=== PATIENT | male | born 1990 | race Caucasian/White ===

== ENCOUNTER 2022-02-25 10:39 | Emergency (ER) | payer BC, SELFPAY ==
[2022-02-25 10:40] VITALS: BP 142/101; PULSE 74; RESP 16; TEMP 36.7; O2SAT 98; BMI 25.1
--- NOTE | 2022-02-25 11:08 | EX.ED.GUMALE ---
HPI History of Present Illness Chief Complaint: Male Pain/Injury Informant: patient Pain Onset: Month(s) (1) Context: Sudden Onset Timing: Continuous Worsened by: Sitting Appearance Lesion(s): No Genital Edema: No Narrative Narrative: Patient presents with left testicular pain that began 1 month ago. Patient states he fell and landed on his left testicle. Patient states the pain is been constant over the last month. Patient states the pain is sharp. Patient states it is worse with sitting. Patient also admits to some paresthesias on the left side of his penis. Patient denies any swelling. Patient denies any dysuria or hematuria. Patient denies any fevers or chills. Patient denies any nausea or vomiting. Patient denies any radiation of the pain. Patient was seen at urgent care today and was then referred to the emergency department. Prior similar symptoms: No PFSH PFSH Medical History no medical history no medical history Home Medications NK 02/25/22 [History Last Taken Unknown] Allergy/AdvReac Type Severity Reaction Status Date / Time No Known Allergies Allergy Verified 02/25/22 10:42 Surgical History no surgical history no surgical history Social History Smoking Status: Current every day smoker tobacco type: smokeless tobacco ROS ROS ED Constitutional Constitutional ED: Denies chills or fever(s) Eyes Eyes: Denies blurry vision or change in vision ENT ENT ED: Denies rhinorrhea or sore throat Cardiovascular Cardiovascular: Denies chest pain or palpitations Respiratory/Chest Respiratory/Chest: Denies cough or dyspnea Gastrointestinal Gastrointestinal: Denies nausea or vomiting Genitourinary Genitourinary ED: Denies dysuria or hematuria Musculoskeletal Musculoskeletal: Reports back pain; Denies neck pain Integumentary Denies abscess or rash Neurologic Neurologic: Denies headache(s) or weakness Allergic/Immunologic Allergic/Immunologic ED: Denies mouth swelling or urticaria EXAM Physical Exam Const Vital Signs: 02/25/22 10:40 Temperature 98.1 F Temperature Source Temporal Pulse Rate 74 Respiratory Rate 16 Blood Pressure 142/101 H Blood Pressure Mean 114 Pulse Ox 98 Oxygen Delivery Method Room Air Positive well nourished and well developed General Appearance ED: well developed and NAD HEENT Reports moist mucous membranes Neck supple and no JVD Resp normal respiratory effort and clear to auscultation bilaterally Cardio regular rate, regular rhythm and no murmurs GI non-tender and non-distended Auscultation: normoactive bowel sounds Palpation: soft Narrative: There is some mild tenderness over the left testicle. There is no edema or ecchymosis. There is no erythema. There is no warmth. There is a vertical lie. Epididymis is posterior. There is no tenderness over the right testicle. There is no inguinal tenderness bilaterally. There is no edema or ecchymosis along the penile shaft. Neuro oriented x3, CN's II-XII intact bilaterally, moves all extremities, no focal motor deficits and no sensory deficits noted Sensorium / Orientation: alert Psych mental status grossly normal MDM MDM MDM Narrative Medical decision making narrative: Urinalysis was obtained and was within normal limits. There is no evidence of urinary tract infection or hematuria. Testicular ultrasound was obtained. There is small bilateral hydroceles. There is no evidence of epididymitis. There is good arterial flow. This was interpreted by the radiologist and reviewed by myself. Patient was advised of his findings. Patient was instructed to wear tight fitting underwear for scrotal support. Patient was instructed to follow-up with his primary care physician in 5 to 7 days. Patient was also given a referral for urology follow-up. Patient understood and was agreeable with the plan. All questions were answered. Lab Data Attestation: I reviewed the patient's lab results. Labs: Laboratory Results - last 24 hr 02/25/22 12:45 Urine Color Yellow Urine Clarity Clear Urine pH 8.0 Ur Specific [place] 1.010 Urine Protein Negative Urine Glucose (UA) Normal Urine Ketones Negative Urine Occult Blood 25 H Urine Nitrite Negative Urine Bilirubin Negative Urine Urobilinogen Normal Ur Leukocyte Esterase Negative Urine RBC 0 SEEN Urine WBC 0 SEEN Ur Squamous Epith Cells 0 SEEN Urine Bacteria 0 SEEN Urine Mucus 0 SEEN Radiography Diagnostic Testing: Clinical Impression(s) from Imaging Studies Testicular Ultrasound 02/25/22 11:13 IMPRESSION: Small bilateral hydroceles. Electronically Signed: Mason Hernandez MD at 12:57 EDT , Discharge Plan Triage Chief Complaint: Male Pain/Injury ED Provider: Saurabh Howard Dx/Rx/DC Orders Clinical Impression: Hydrocele of testis Instructions: ED Hydrocele, Type Not Specified Prescriptions: No Action NK Primary Care Provider: Quinton Jackson Referrals: Quinton Jackson MD [Primary Care Provider] - 5-7 Days Zion Sen MD [STAFF PHYSICIAN] - 5-7 Days Disposition Disposition: Home, Self Care
--- NOTE | 2022-02-25 11:13 | US_ITS ---
STUDY: SCROTUM ULTRASOUND REASON FOR EXAM: Male, 31 years old. Left testicular pain following a recent fall. TECHNIQUE: Ultrasound evaluation of the scrotum was performed with color Doppler and static reis-scale imaging. COMPARISON: None. FINDINGS: RIGHT TESTICLE INTRATESTICULAR: There is a normal size of the right testicle. The right testicle measures 4.2 cm x 3 cm x 2.5 cm. There is a homogenous echotexture. There is normal arterial and normal venous vascularity. There is no demonstrated right testicular mass or cyst. EXTRATESTICULAR: The epididymis is normal in size. The epididymis head measures 0.9 cm x 1.2 cm x 0.9 cm. There is normal vascularity of the epididymis. There is no demonstrated epididymal cystic structure. There is a small hydrocele. There is no demonstrated varicocele. There is no demonstrated extratesticular mass or cyst. LEFT TESTICLE INTRATESTICULAR: There is a normal size of the left testicle. The left testicle measures 4.4 cm x 3.1 cm x 2.5 cm. There is a homogenous echotexture. There is normal arterial and normal venous vascularity. There is no demonstrated left testicular mass or cyst. EXTRATESTICULAR: The epididymis is normal in size. The epididymis head measures 0.7 cm x 1.5 cm x 1.3 cm. There is normal vascularity of the epididymis. There is no demonstrated epididymal cystic structure. There is a small hydrocele. There is no demonstrated varicocele. There is no demonstrated extratesticular mass or cyst. US/Testicular with Arterial Flow IMPRESSION: Small bilateral hydroceles. Electronically Signed: Mason Hernandez MD at 12:57 EDT ,
[2022-02-25 12:52] LABS: Bacteria 0 SEEN /hpf (None Seen); Mucous, Urine 0 SEEN /hpf (<or=2+); Red Blood Cells-Urine 0 SEEN /hpf (0-5); Squamous Epithelial Cells - UA 0 SEEN /hpf (0-5); White Blood Cells 0 SEEN /hpf (0-5)
[2022-02-25 12:53] LABS: Color, Urine Yellow (Yellow); Glucose, Dipstick Normal (Normal); Ketone-Dipstick Negative (Negative); Leukocyte Esterase-Dipstick Negative /ul (Negative); Nitrite-Dipstick Negative (Negative); Occult Blood-Urine 25 /ul (Negative); Protein-Dipstick Negative (Negative); Urine Bilirubin Dipstick Negative (Negative); Urine Clarity Clear (Clear); Urine Urobilinogen Normal (Normal)
== END 2022-02-25 13:28 | disposition home or self-care (01) ==
PROVIDERS: Emergency Provider Emergency Medicine; PCP Family Medicine; Visit Provider Emergency Medicine
DX: N43.3 Hydrocele, unspecified (principal); N50.812 Left testicular pain; F17.220 Nicotine dependence, chewing tobacco, uncomplicated
CPT/HCPCS: 76870; 81001; 93976; 99282

== ENCOUNTER 2022-04-19 06:33 | Emergency (ER) | payer BC, SELFPAY ==
[2022-04-19 06:35] VITALS: BP 127/89; PULSE 81; RESP 16; TEMP 36.8; O2SAT 97; BMI 25.7
[2022-04-19] MEDS: 0.9% Normal Saline 1,000 ML 999 ML IV (07:15)
--- NOTE | 2022-04-19 07:29 | EDS_ITS ---
HPI History of Present Illness Chief Complaint: Other, Pain/Inj Narrative Narrative: Patient is a 31-year-old male who was seen in February after reportedly injuring his testicles. He had an ultrasound performed that time which showed small bilateral hydroceles but no acute trauma. Patient states that he has noticed that if he is up moving around mainly at work that he will have a intermittent sharp pinching pain that occurs in the testicle and down both legs towards the ankle. He also states that he can feel the same sensation in his armpits. He denies any nausea vomiting diarrhea dysuria or hematuria. He denies any repeat trauma. He states he is not sure why he is still having symptoms as his ultrasound from a few weeks ago was normal and secondary to this comes in for evaluation [facility] Home Medications NK 02/25/22 [History Last Taken Unknown] Allergy/AdvReac Type Severity Reaction Status Date / Time No Known Allergies Allergy Verified 02/25/22 10:42 Social History Smoking Status: Current every day smoker tobacco type: smokeless tobacco ROS ROS ED Constitutional Constitutional ED: Denies chills or fever(s) ENT ENT ED: Denies sore throat Cardiovascular Cardiovascular: Denies chest pain Respiratory/Chest Respiratory/Chest: Denies cough or dyspnea Gastrointestinal Gastrointestinal: Denies abdominal pain, diarrhea, nausea or vomiting Genitourinary Genitourinary ED: Denies dysuria or hematuria Musculoskeletal Musculoskeletal: Denies back pain or myalgias Integumentary Denies rash Neurologic Neurologic: Denies headache(s) Hematologic/Lymphatic Hematologic/Lymphatic: Denies easy bleeding or easy bruising EXAM Physical Exam Const Vital Signs: 04/19/22 06:35 04/19/22 06:42 Temperature 98.2 F Temperature Source Oral Pulse Rate 81 Respiratory Rate 16 Respiratory Effort Normal Non-Labored Respiratory Pattern Normal Blood Pressure 127/89 H Blood Pressure Mean 101 Pulse Ox 97 Oxygen Delivery Method Room Air Positive well nourished and well developed General Appearance ED: well developed Eyes PERRL and EOMs intact bilaterally Neck supple Neck Narrative: Negative Spurling sign bilaterally Resp normal respiratory effort and clear to auscultation bilaterally Cardio regular rate and regular rhythm Rate: other Other Details: Radial pulses are +2-4 bilaterally are equal and symmetric GI normal to inspection, nondistended, normoactive bowel sounds, non-tender and non-distended GI Narrative: No voluntary guarding or rigidity no pulsatile mass. Auscultation: normoactive bowel sounds Palpation: soft Narrative: Normal circumcised male without blood or discharge from the urethral meatus. No testicular swelling or masses noted. No abnormal lie palpated. No obvious direct or indirect hernia. No overlying soft tissue changes to suggest Harpreet's gangrene Back/Spine Back/Spine Narrative: No saddle anesthesia. Negative straight leg raise. No clonus or Babinski. Patellar reflexes are plus 2 out of 4 bilaterally Extremity normal to inspection Extremity Narrative: Bilateral upper extremities are neurovascularly intact with intact AIN/PIN. No soft tissue changes noted in either axilla to suggest trauma or infection Neuro oriented x3 and CN's II-XII intact bilaterally Sensorium / Orientation: alert Psych mental status grossly normal Skin no rashes or lesions noted MDM MDM MDM Narrative Medical decision making narrative: Patient presented to the ER with stable vitals. He reported a pinching/painful sensation not only around the genitals but down both legs towards the ankle and even in his axilla. This does not correlate with any type of testicular trauma and patient also reports there is been no new injury. On exam there is no blood swelling masses or signs of infection. He also has no signs of neuro claudication for his low back such as foot drop or asymmetry. Therefore there is no need for a CT scan of the lumbar spine to check for possible neurologic impingement. At this time basic blood work will be obtained to check for electrolyte disturbance as a cause of his abnormal sensation. However if it does not show any clinical significant findings then patient can be discharged home and follow-up on an outpatient basis Patient will be signed out to Dr Guevara pending completion of his laboratory studies Lab Data Attestation: I reviewed the patient's lab results. Labs: Laboratory Results - last 24 hr 04/19/22 04/19/22 07:15 07:15 WBC 12.2 H RBC 5.20 Hgb 16.0 Hct 45.8 MCV 88.1 MCH 30.8 MCHC 34.9 RDW Std Deviation 38.0 RDW Coeff of Larry 11.9 Plt Count 330 MPV 8.9 Immature Gran % (Auto) 0.200 Neut % (Auto) 70.3 H Lymph % (Auto) 20.6 [place] % (Auto) 7.2 Eos % (Auto) 1.2 Baso % (Auto) 0.5 Absolute Neuts (auto) 8.6 H Absolute Lymphs (auto) 2.51 Nucleated RBC % 0 Sodium 138 Potassium 3.4 L Chloride 102 Carbon Dioxide 23.0 Anion Gap 13 BUN 22 H Creatinine 0.93 Estim Creat Clear Calc 122.58 Est GFR (MDRD) Af Amer 121 Est GFR (MDRD) Non-Af 100 BUN/Creatinine Ratio 23.6 H Glucose 91 Calcium 9.1 Magnesium 2.1 Discharge Plan Triage Chief Complaint: Other, Pain/Inj ED Provider: Mathieu Zhang Dx/Rx/DC Orders Clinical Impression: Musculoskeletal pain, Nerve pain Prescriptions: No Action NK Primary Care Provider: Care Physician,No Primary Referrals: Quinton Jackson MD [Non-Staff] -
[2022-04-19 07:34] LABS: Absolute Lymphocyte Count 2.51 X10^3/uL (0.83-4.51); Absolute Neutrophil Count 8.6 X10^3/uL (2.0-7.7); Anion Gap 13 (5-15); BUN 22 mg/dL (7-18); BUN/Creat Ratio 23.6 RATIO (10-20); Basophil# 0.06 X10^3/uL; Basophil% 0.5 % (0-1); Calcium,Total 9.1 mg/dL (8.5-10.1); Chloride 102 mmol/L (98-107); Creatinine, Serum 0.93 mg/dL (0.70-1.30); EST Glomerular Filtration Rate 100 mL/min (>60); Eosinophil# 0.15 X10^3/uL; Eosinophils% 1.2 % (0-5); Est Glom Filt Rate - Afr Amer 121 mL/min (>60); Estimated Creatinine Clearance 122.58 ml/min; Glucose 91 mg/dL (74-106); Hematocrit 45.8 % (40-54); Lymphocyte # 2.51 X10^3/ul (0.83-4.51); Lymphocyte % 20.6 % (19-41); Magnesium 2.1 mg/dL (1.6-2.6); Mean Corp Hgb Conc 34.9 g/dL (32-36); Mean Corpuscular Hgb 30.8 pg (27.0-32.0); Mean Corpuscular Volume 88.1 fL (80-94); Mean Platelet Vol. 8.9 fl (6.2-12.0); Monocyte# 0.88 X10^3/uL; Monocyte% 7.2 % (0-10); NRBC Flagged by Analyzer 0 % (0-5); Neutrophil # 8.58 X10^3/uL (2.7-7.7); Neutrophil % 70.3 % (47-70); Platelet Count 330 K/mm3 (150-450); Potassium 3.4 mmol/L (3.5-5.1); RBC Distribution Width CV 11.9 % (11.6-14.6); Sodium Level 138 mmol/L (136-145); White Blood Count 12.2 K/mm3 (4.4-11.0)
[2022-04-19 08:46] LABS: Bacteria 0 SEEN /hpf (None Seen); Mucous, Urine 0 SEEN /hpf (<or=2+); Red Blood Cells-Urine 0 SEEN /hpf (0-5); Squamous Epithelial Cells - UA 0 SEEN /hpf (0-5); White Blood Cells 0 SEEN /hpf (0-5)
[2022-04-19 08:47] LABS: Color, Urine Yellow (Yellow); Glucose, Dipstick Normal (Normal); Leukocyte Esterase-Dipstick Negative /ul (Negative); Nitrite-Dipstick Negative (Negative); Occult Blood-Urine 25 /ul (Negative); Protein-Dipstick 15 mg/dl (Negative); Specific Gravity, Urine 1.025 (1.002-1.030); Urine Bilirubin Dipstick Negative (Negative); Urine Clarity Clear (Clear); Urine Urobilinogen Normal (Normal)
[2022-04-19 08:50] LABS: Ketone-Dipstick 150 mg/dl (Negative)
[2022-04-19 09:50] VITALS: BP 123/62; PULSE 63; RESP 18; O2SAT 97
== END 2022-04-19 09:51 | disposition home or self-care (01) ==
PROVIDERS: Emergency Provider Emergency Medicine; Visit Provider Emergency Medicine
DX: M79.10 Myalgia, unspecified site (principal); F17.220 Nicotine dependence, chewing tobacco, uncomplicated
CPT/HCPCS: 80048; 81001; 83735; 85025; 96360; 99283; J7030; A4216

== ENCOUNTER 2024-03-02 02:18 | Emergency (ER) | payer OTHER, SELFPAY ==
[2024-03-02 02:19] VITALS: BP 134/92; PULSE 89; RESP 18; TEMP 36.7; O2SAT 94; BMI 26.6
--- NOTE | 2024-03-02 02:59 | EDS_ITS ---
HPI History of Present Illness Chief Complaint: Laceration Narrative Narrative: 32-year-old male presenting laceration to left index finger. Finger with a knife he was trying to cut a frozen hamburger in half. No numbness or tingling. Last tetanus unknown. [id number]. PFSH PFS Medical History no medical history Home Medications ?Medication ?Instructions ?Recorded ?Last Taken ?Type NK 02/25/22 Unknown History Allergy/AdvReac Type Severity Reaction Status Date / Time No Known Allergies Allergy Verified 03/02/24 02:25 Social History Smoking Status: Former smoker ROS ROS ED Constitutional Constitutional ED: Denies chills, fever(s) or sweats Eyes Eyes: Denies blurry vision or change in vision ENT ENT ED: Denies ear pain or sore throat Cardiovascular Cardiovascular: Denies chest pain, palpitations or racing heartbeat Respiratory/Chest Respiratory/Chest: Denies cough, dyspnea or sputum Gastrointestinal Gastrointestinal: Denies abdominal pain, constipation, diarrhea, nausea or vomiting Genitourinary Genitourinary ED: Denies dysuria, hematuria or urinary frequency Musculoskeletal Musculoskeletal: Denies arthralgias, myalgias or neck pain Integumentary Reports other Details: Laceration left index finger ; Denies abscess, Abrasions or rash Neurologic Neurologic: Denies headache(s), paresthesias or weakness Psychiatric Psychiatric: Denies anxiety, depression, suicidal ideation or suicidal thoughts Endocrine Endocrinology: Denies polydipsia or polyuria EXAM Physical Exam Const Vital Signs: 03/02/24 02:19 Temperature 98.1 F Temperature Source Temporal Pulse Rate 89 Respiratory Rate 18 Blood Pressure 134/92 H Blood Pressure Mean 106 Pulse Ox 94 Oxygen Delivery Method Room Air Positive well nourished General Appearance ED: NAD HEENT Reports moist mucous membranes Eyes PERRL and EOMs intact bilaterally Resp normal respiratory effort Cardio regular rate and regular rhythm Extremity Extremity Narrative: 3 cm laceration to the left index finger between the DIP and the PIP. Wound margins are fairly well up there is minor bleeding. Left hand neurovascular intact brisk cap refill to all 5 fingers Neuro oriented x3 and CN's II-XII intact bilaterally Sensorium / Orientation: alert Psych mental status grossly normal MDM MDM MDM Narrative Medical decision making narrative: 33-year-old male with laceration. Last tetanus unknown. Tetanus updated today. Patient's wound was sutured. Please see procedure note. Patient tolerated this well. Wound care and return precautions were discussed. Discharged in stable condition. Impression: 1. 2 cm left index finger laceration Lab Data Attestation: I reviewed the patient's lab results. Procedures Lacerations left index finger: Length: 1 in Depth: Skin Shape: Linear Prep: Sterile Conditions and Shure-Clens Laceration repair: Irrigated and Lidocaine with epi Irrigated (ml): 250 Number of Sutures/Wheeler: 3 Suture Information: Ethilon, Simple and 4-0 Discharge Plan Triage Chief Complaint: Laceration ED Provider: Fede Leon Dx/Rx/DC Orders Instructions: ED Laceration, Hand: All Closures Prescriptions: No Action NK Primary Care Provider: Care Physician,No Primary Referrals: Care Physician,No Primary [Primary Care Provider] - Print Language: [place]an Disposition Disposition: Home, Self Care
[2024-03-02] MEDS: Lidocaine 1% /Epi 1:100 (20ml) 20 ML Vial 30 ML INFILT (03:07)
[2024-03-02] MEDS: Diphth,Pertuss(Acell),Tet Vac 0.5 ML Vial IM (03:07)
[2024-03-02 03:08] VITALS: BP 116/80; PULSE 78; RESP 16; TEMP 37.1; O2SAT 99
== END 2024-03-02 03:23 | disposition home or self-care (01) ==
PROVIDERS: Emergency Provider Student in an Organized Health Care Education/Training Program; PCP Registered Nurse; Visit Provider Student in an Organized Health Care Education/Training Program
DX: S61.211A Laceration without foreign body of left index finger without damage to nail, initial encounter (principal); Z87.891 Personal history of nicotine dependence; W26.0XXA Contact with knife, initial encounter; Z23 Encounter for immunization
CPT/HCPCS: 12002; 90715; 99283